=== PATIENT | female | born 1950 | race Caucasian/White ===

== ENCOUNTER 2023-08-09 11:12 | Outpatient (REF) | payer MEDICARE, BC, SELFPAY ==
[2023-08-09 12:26] LABS: Creatinine,Urine 47.51 mg/dL
[2023-08-09 12:29] LABS: Creatinine,24hr Ur 0.76 g/24hr (0.60-1.80); Total Volume 1600 ml
== END 2023-08-09 11:13 | disposition home or self-care (01) ==
LOC: LBN 11:12
PROVIDERS: PCP Internal Medicine; Visit Provider Internal Medicine Endocrinology, Diabetes & Metabolism
DX: M81.0 Age-related osteoporosis without current pathological fracture (principal)
CPT/HCPCS: 82570

== ENCOUNTER 2023-08-20 10:27 | Outpatient (REF) | payer MEDICARE, BC, SELFPAY | END 2023-08-20 10:28 | disposition home or self-care (01) | LOC: LBN 10:27 | PROVIDERS: PCP Internal Medicine; Visit Provider Physician Assistant Medical | DX: J02.9 Acute pharyngitis, unspecified (principal) | CPT/HCPCS: 87070 ==

== ENCOUNTER 2023-10-18 19:40 | Outpatient (REF) | payer MEDICARE, BC, SELFPAY ==
[2023-10-18 14:07] LABS: Creatinine,Urine 40.96 mg/dL
[2023-10-18 14:08] LABS: Creatinine,24hr Ur 0.74 g/24hr (0.60-1.80); Total Volume 1800 ml
[2023-10-19 09:46] LABS: Calcium Urine 23.8 mg/dL (See Note); Calcium Urine 24 hr 428 mg/24hr (100-300); Timed Urine Volume 1800 mL
== END 2023-10-18 19:41 | disposition home or self-care (01) ==
LOC: LBN 19:40
PROVIDERS: PCP Internal Medicine; Visit Provider Internal Medicine Endocrinology, Diabetes & Metabolism
DX: M81.0 Age-related osteoporosis without current pathological fracture (principal)
CPT/HCPCS: 81050; 82340; 82570